=== PATIENT | female | born 1990 | race Caucasian/White ===

== ENCOUNTER 2017-02-11 12:34 | Emergency (ER) | payer MEDICAID ==
--- NOTE | ~2017-02-11 | ER ---
PATIENT'S NAME: GUERITA HERRERA [facility] AGE: 26 Y [address] ROOM: [place] [address] LOCATION: [facility] ADMIT DATE: 02/11/2017 ER/Outpatient Report DISCHARGE DATE: 02/11/2017 FAMILY PHYSICIAN: Isabelle Negron MD ATTENDING PHYSICIAN: Ines Hong Time of Arrival: 1245 hours. Time of Exam: 1245 hours. CHIEF COMPLAINT: Nausea and vomiting. HISTORY OF PRESENT ILLNESS: The patient states that she woke up this morning around 4 o'clock and started vomiting and then diarrhea started later. States that she was out drinking last night and does use marijuana on a daily basis. States she smokes marijuana several times a day for anxiety issues. She denies having any chest discomfort. Denies having cough, cold, congestion, or runny nose. Has some right upper quadrant abdominal pain. ALLERGIES: NO KNOWN ALLERGIES. CURRENT MEDICATIONS: She is on day 7 of an antibiotic for trichomonas. PAST MEDICAL HISTORY: Sexually transmitted disease. PAST SURGERIES: Cholecystectomy. LAST MENSTRUAL PERIOD: She has a control implant. SOCIAL HISTORY: She does smoke at least a pack per day, does use marijuana several times throughout the day, and drinks alcohol occasionally. REVIEW OF SYSTEMS: All negative other than those mentioned in the HPI. PHYSICAL EXAMINATION: VITAL SIGNS: She weighed 70.8 kg. Blood pressure is 98/56, pulse is 62, respirations 18, temperature of 97.3, and O2 saturation is 97% on room air. GENERAL: She is awake, alert, and oriented x4. PATIENT'S NAME: GUERITA HERRERA [facility] AGE: 26 Y [address] ROOM: [place] [address] LOCATION: [facility] ADMIT DATE: 02/11/2017 ER/Outpatient Report DISCHARGE DATE: 02/11/2017 FAMILY PHYSICIAN: Isabelle Negron MD ATTENDING PHYSICIAN: Ines Hong SKIN: [place], warm, and dry. HEENT: Pupils equal and reactive to light. TMs clear. Nasal clear. Oropharynx clear however tongue is coated. Neck supple. No lymph nodes felt. LUNGS: Respirations are even and nonlabored. Lung sounds were clear throughout. HEART: Regular rate and rhythm. ABDOMEN: Soft, nondistended. Bowel sounds are present. Tender to palpate in the right upper quadrant. No masses or organomegaly noted. NEURO: The patient walked in with a steady even gait. EMERGENCY DEPARTMENT COURSE: Saline lock was initiated. Fluids of normal saline were started. The patient was given Zofran 4 mg IV. Lab work was drawn. CBC is within normal limits. Chem panel is within normal limits. After the 1st Liter of fluids, the patient states she was feeling somewhat better, just feeling weak. A second liter of fluids was started. She was allowed to rest. IMPRESSION: Nausea, vomiting, diarrhea. PLAN: Home. Rest. Continue fluids. Stop use of marijuana. Follow up with her primary provider in the next 2-3 days. If symptoms persist or worsen, she is welcome to come back to the ER. She verbalized understanding. NATHANIEL SYED APRN FOR MD AMBER VANCE/paulie /[id number] d: 02/11/171947 t: 02/18/17 1423, OUTPATIENT REPORT
[2017-02-11 13:28] LABS: BASOPHIL % 0.4 %; HEMATOCRIT 44.6 % (33.0-46.0); HEMOGLOBIN 15.1 g/dL (11.0-15.0); IMMATURE GRANULOCYTE % 0.1 %; LYMPHOCYTE # 1.9 K/uL (0.8-4.0); LYMPHOCYTE % 26.2 %; MCH 29.5 pg (27.0-34.0); MCHC 33.9 gm/dL (32.0-36.5); MCV 87.3 fl (83.0-98.0); MONOCYTE # 0.3 K/uL (0.0-1.0); MONOCYTE % 3.6 %; MPV 10.8 fl (9.4-12.4); NEUTROPHIL % 69.7 %; NRBC % 0 /100WBC (0-0.00); PLATELET COUNT 224 K/uL (150-450); RBC 5.11 M/uL (3.50-5.00); RDW-CV 12.1 % (11.9-14.6); WBC 7.2 K/uL (4.0-11.0)
[2017-02-11 13:49] LABS: ALBUMIN 4.2 gm/dL (3.5-5.0); ALK PHOS 80 IU/L (33-138); ALT 24 IU/L (12-78); ANION GAP 14.5 (10.0-19.0); AST 25 IU/L (10-40); BLOOD UREA NITROGEN 5 mg/dL (6-24); CALCIUM 8.5 mg/dL (8.5-10.5); CHLORIDE 112 mMol/L (96-110); CO2 24 mMol/L (22-32); CREATININE 0.7 mg/dL (0.5-1.1); ESTIMATED GFR (MDRD EQUATION) > 60; POTASSIUM 3.5 mMol/L (3.7-5.1); TOTAL BILIRUBIN 0.5 mg/dL (0.0-1.5); TOTAL PROTEIN 7.9 g/dL (6.0-8.4)
[2017-02-11 13:51] LABS: SODIUM 147 mMol/L (135-145)
== END 2017-02-11 14:17 | disposition disaster alternative care site (69) ==
LOC: GMED 12:34
PROVIDERS: Family Medicine
DX: R11.2 Nausea with vomiting, unspecified (principal); R19.7 Diarrhea, unspecified
CPT/HCPCS: J2405; J7030